=== PATIENT | female | born 1995 | race Caucasian/White ===

== ENCOUNTER 2020-01-03 08:18 | Emergency (ER) | payer BC, SELFPAY ==
[2020-01-03] MEDS ORDERED: Ketorolac Tromethamine 30 MG/ML VIAL ONE (08:59)
[2020-01-03 09:10] LABS: BHCG - Serum Negative (NEGATIVE); Pregs Control Background? CLEAR/WHITE (CLR/WHITE); Pregs Control Bar Appear? YES (CONTROL BAR)
[2020-01-03 09:13] LABS: #Basophils 0.1 thou/uL (0.0-0.2); #Eosinphils 0.3 thou/uL (0.0-0.7); #Lymphocytes 2.5 thou/uL (1.20-3.40); #Monocytes 0.4 thou/uL (0.11-0.59); #Neutrophils 3.6 thou/uL (1.40-6.50); %Basophils 1.4 % (0.0-1.0); %Eosinophils 4.2 % (0.0-10.0); %Lymphocytes 35.5 % (21.0-51.0); %Monocytes 6.2 % (0.0-10.0); %Neutrophils 52.7 % (42.0-75.0); Hemoglobin 14.5 g/dL (12.0-16.0); Mean Corpuscular HGB CONC 31.5 g/dL (32.0-36.0); Mean Corpuscular Hemoglobin 28.1 pg (27.0-31.0); Mean Corpuscular Volume 89.2 fL (78.0-98.0); Mean Platelet Volume 7.7 fL (7.4-10.4); Platelet Count 310 thou/uL (130-400); RBC Distribution Width 13.2 % (11.5-14.5); Red Blood Cell (RBC) Count 5.15 mill/uL (4.20-5.40); White Blood Cell (WBC) Count 6.9 thou/uL (4.8-10.8)
[2020-01-03 09:27] LABS: ALT (SGPT) 7 U/L (8-55); AST (SGOT) 11 U/L (5-34); Albumin 4.4 g/dL (3.5-5.0); Alkaline Phosphatase 52 U/L (40-110); Anion Gap 11 mmol/L (10-20); BUN (Urea Nitrogen) 9 mg/dL (7.0-18.7); Bilirubin, Total 0.4 mg/dL (0.2-1.2); Calc. Creatinine Clearance 0 mL/min (70-130); Calcium 9.4 mg/dL (7.8-10.44); Carbon Dioxide 21 mmol/L (22-29); Chloride 110 mmol/L (98-107); Estimated GFR-MDRD 72; Globulin 2.8 g/dL (2.4-3.5); Glucose 95 mg/dL (70-105); Potassium 3.8 mmol/L (3.5-5.1); Protein, Total 7.2 g/dL (6.0-8.3); Sodium 138 mmol/L (136-145)
[2020-01-03] MEDS ORDERED: Ondansetron PF 4 MG/2 ML Vial ONE (09:41)
[2020-01-03] MEDS ORDERED: Fentanyl 100 MCG/2 ML VIAL ONE ×2 (09:41→11:39)
[2020-01-03 09:49] LABS: Bilirubin Small (Negative); Blood, Urine Large (Negative); Glucose, Urine (Dipstick) Negative (Negative); Leukocyte Trace (Negative); Nitrite Negative (Negative); Protein, Urine (Dipstick) 30 mg/dL (Neg-Trace); Urobilinogen 0.2 mg/dL (Less than 2)
[2020-01-03 10:05] LABS: Clarity Hazy (Clear)
[2020-01-03 10:08] LABS: Bacteria/HPF 3+ HPF (None Seen); RBC/HPF Greater than 50 HPF (0-3)
--- NOTE | 2020-01-03 14:09 | CT ---
NONCONTRAST CT OF THE ABDOMEN AND PELVIS: INDICATION: History of right-sided flank pain. COMPARISON: Prior exam dated 04/15/2016. FINDINGS: The lungs bases are clear. Unopacified liver is unremarkable-appearing. The unopacified pancreas, adrenal glands, and spleen ap pear within normal limits. There is a 1-2 mm nonobstructing calculus within the inferior pole and superior pole of the right kid sree. There is mild right hydronephrosis and hydroureter. There are edematous changes involving the right kidney. There is bilateral medullary nephrocalcinosis. No free fluid or enlarged lymph nodes are evident. There is a normal appendix in the right lower quadrant of the abdomen. There is a 1-2 mm stone invol ving the distal right ureter just proximal to the right UVJ. Unopacified colon demonstrates a mild amount of retained stool within the colon. The small bowel is of normal caliber. Reproductive structures are not well seen. The bladder is partially decompressed . No acute osseous abnormality is evident. IMPRESSION: 1. A 1-2 mm distal right ureteral calculus with mild right hydronephrosis. 2. Right nephrolithiasis. POS: [facility]
== END 2020-01-03 13:15 | disposition home or self-care (01) ==
LOC: ERS 08:18
DX: N13.2 Hydronephrosis with renal and ureteral calculous obstruction (principal); M06.9 Rheumatoid arthritis, unspecified; F17.210 Nicotine dependence, cigarettes, uncomplicated
CPT/HCPCS: 74176; 80053; 81003; 81015; 84703; 85025; 87086; 96361; 96374; 96375; 96376; J1885; J2405; J3010